=== PATIENT | male | born 1975 | race Asian ===

== ENCOUNTER 2018-04-13 09:01 | Outpatient (CLI) | payer OTHER ==
[2018-04-13 09:26] LABS: % BASOPHILS 0.8 % (0.0-2.0); % EOSINOPHILS 1.8 % (0.0-5.0); % LYMPHOCYTES 35.5 % (20.0-50.0); % MONOCYTES 6.9 % (2.0-10.0); BASOPHILE ABSOLUTE 0.1 Th/cumm (0-0.2); EOSINOPHILE ABSOLUTE 0.1 Th/cmm (0.1-0.4); HEMATOCRIT 44.3 % (41.0-60); HEMOGLOBIN 15.2 gm/dL (12-16); LYMPHOCYTE ABSOLUTE 2.8 Th/cmm (1.5-3.0); MEAN CELL VOLUME 92.5 fl (80-99); MEAN CORPUSCULAR HEMOGLOBIN 31.7 pg (26.0-30.0); MEAN CORPUSCULAR HGB CONC 34.3 pg (28.0-36.0); MEAN PLATELET VOLUME 7.6 fl; MONOCYTE ABSOLUTE 0.6 Th/cmm (0.3-1.0); NEUTROPHILE ABSOLUTE 4.4 Th/cmm (1.8-8.0); PLATELET COUNT 298 Th/cmm (150-400); RED BLOOD COUNT 4.79 Mil/cmm (4.30-5.70)
[2018-04-13 09:38] LABS: ALB/GLOB RATIO 1.6 (1.0-1.8); ALBUMIN 4.5 gm/dL (4.2-5.5); ALKALINE PHOSPHATASE 85 U/L (34-104); BILIRUBIN,TOTAL 0.8 mg/dL (0.3-1.0); BUN - UREA NITROGEN 12 mg/dL (7-25); CALCIUM SERUM 9.5 mg/dL (8.6-10.3); CHLORIDE 104 mEq/L (98-107); CHOLESTEROL 173 mg/dL (<200); CREATININE - SERUM 0.9 mg/dL (0.7-1.3); GFR AFRICAN-AMERICAN > 60.0 ml/min (>90); GFR NON AFRICAN-AMERICAN > 60.0 ml/min; GLUCOSE 100 mg/dL (70-105); HDL -HIGH DENSITY LIPOPROTEIN 42 mg/dL (23-92); SGOT 15 U/L (13-39); SGPT/ALT 39 U/L (7-52); SODIUM SERUM 138 mEq/L (136-145); TOTAL PROTEIN,SERUM 7.3 gm/dL (6.0-8.3); TRIGLYCERIDES 150 mg/dL (<150)
[2018-04-13 19:01] LABS: A1C % 5.3 % (4.0-6.0)
== END 2018-04-13 09:15 | disposition home or self-care (01) ==
LOC: LAB 09:01 → EEVIPCON 09:01 → LAB 09:15
PROVIDERS: ATTEND Internal Medicine
DX: M10.9 Gout, unspecified (principal); R79.89 Other specified abnormal findings of blood chemistry
CPT/HCPCS: 36415-UA; 80053-TC; 80061-TC; 83036-90; 84443-TC; 84550-TC; 85025-TC

== ENCOUNTER 2018-07-07 13:40 | Outpatient (CLI) | payer OTHER ==
--- NOTE | 2018-07-07 14:10 | Diagnostic Imaging Report ---
Right shoulder (4 views) HISTORY: Pain No acute abnormalities. No fractures. No dislocation. Joint spaces appear normal. IMPRESSION: No acute abnormalities
== END 2018-07-07 14:00 | disposition home or self-care (01) ==
LOC: RAD 13:40
PROVIDERS: ATTEND Internal Medicine
DX: M25.511 Pain in right shoulder (principal); M10.9 Gout, unspecified
CPT/HCPCS: 73030-TC-RT